=== PATIENT | female | born 1970 | race Two or more races ===

== ENCOUNTER → 2024-12-24 | Outpatient (CLI) | payer OTHER, SELFPAY ==
--- NOTE | 2024-12-24 14:01 | XR_ITS ---
Examination: Knee, right , 3 views Technique: Knee AP, lateral, oblique 3 views Date and time of exam: December 24, 2024 1412 hours INDICATIONS: Right knee pain beginning one week ago FINDINGS: Mild osteopenia Mild narrowing medial joint space No fracture or dislocation IMPRESSION: Mild narrowing medial joint space
== END | disposition home or self-care (01) ==
LOC: CDIM 13:42
PROVIDERS: PCP Family Medicine; Referring Provider Physician Assistant; Visit Provider Physician Assistant
DX: M25.861 Other specified joint disorders, right knee (principal)
CPT/HCPCS: 73562

== ENCOUNTER → 2025-05-26 | Outpatient (CLI) | payer OTHER, SELFPAY ==
[2025-05-26 08:05] LABS: Collection Type, Urine Clean Catch
[2025-05-26 08:27] LABS: Basophils # (Auto) 0.0 Thou/mm3 (0.0-0.2); Basophils % (Auto) 0 % (0-2.5); Eosinophils # (Auto) 0.0 Thou/mm3 (0.0-0.5); Eosinophils % (Auto) 0 % (0-10); Hematocrit 37.8 % (36.0-46.0); Hemoglobin 13.1 g/dL (12.0-16.0); Immature Granulocytes Auto 0.04 Thou/mm3 (0.00-0.00); Lymphocytes # (Auto) 1.2 Thou/mm3 (1.0-4.8); Lymphocytes % (Auto) 13 % (10-50); Mean Corpuscular HGB Conc 34.7 g/dl (31.0-37.0); Mean Corpuscular Hemoglobin 29.8 pg (25.0-35.0); Mean Corpuscular Volume 86 fL (80-100); Monocytes # (Auto) 0.3 Thou/mm3 (0.0-0.8); Monocytes % (Auto) 4 % (0-12); Neutrophils # (Auto) 7.6 Thou/mm3 (1.8-7.7); Neutrophils % (Auto) 83 % (37-80); Nucleated Red Blood Cell # 0.00 Thou/mm3 (0.00-0.00); Nucleated Red Blood Cell % 0 /100 WBC (0); Platelet Count 332 Thou/mm3 (140-440); RDW Standard Deviation 41.9 fL (36.4-46.3); Red Blood Count 4.39 Miln/mm3 (4.00-5.20); White Blood Count 9.2 Thou/mm3 (3.6-11.0)
[2025-05-26 08:33] LABS: Glucose Estimated Average 120 mg/dL (80-131); Hemoglobin A1C 5.8 % Hgb (4.8-6.0)
[2025-05-26 08:41] LABS: Bilirubin,Urine Negative (Negative); Blood,Urine Negative (Negative); Clarity,Urine Clear (Clear/Hazy); Color,Urine Lt-Yellow (Lt Yel-Yel); Culture Indicated,Urine Not Indicated; Glucose, Urine Negative (Negative); Ketones,Urine Negative (Negative); Leukocyte Esterase,Urine Negative (Negative); Nitrite,Urine Negative (Negative); PH,Urine 6.5 (5.0-7.0); Protein,Urine Negative (Neg - Trace); RBC,Urine 4 /hpf (0-3); Specific Gravity,Urine 1.019 (1.001-1.035); Squamous Epithelial Cell,Urine 3 /hpf (0-5); Urobilinogen,Urine Negative mg/dL (0.0-1.0); WBC,Urine 1 /hpf (0-5)
[2025-05-26 08:48] LABS: Vitamin D 25 Hydroxy Total 18.4 ng/mL (7.3-40.2)
[2025-05-26 09:03] LABS: Alanine Aminotransferase 20 U/L (10-49); Albumin, Serum 4.6 gm/dL (3.5-5.0); Albumin/Globulin Ratio 1.5 (1.2-2.2); Alkaline Phosphatase 109 U/L (46-116); Anion Gap 11 (7-16); Aspartate Amino Transferase 21 U/L (0-34); BUN/Creatinine Ratio 18 Ratio (12-20); Bilirubin,Total 0.4 mg/dL (0.3-1.2); Blood Urea Nitrogen 14 mg/dL (9-23); Calcium 9.9 mg/dL (8.3-10.6); Calcium (Corrected) 9.9 mg/dL (8.5-10.1); Carbon Dioxide 24.6 mMol/L (20.0-31.0); Cardiac Risk Estimate 4.5 RATIO (3.7-5.6); Chloride 106 mMol/L (98-107); Cholesterol 237 mg/dL (132-200); Creatinine (Component) 0.8 mg/dL (0.6-1.3); Free T4 (Free Thyroxine) 1.13 ng/dL (0.89-1.76); Globulin 3.1 gm/dL (2.3-3.5); Glucose 139 mg/dL (74-106); HDL Cholesterol 53 mg/dL (40-60); LDL Cholesterol,Calculated 165 mg/dL (0-130); Osmolality,Calculated 285 (275-295); Potassium 4.3 mMol/L (3.4-5.1); Sodium 142 mMol/L (136-145); Thyroid Stimulating Hormone 0.40 uIU/mL (0.55-4.78); Total Protein 7.7 gm/dL (5.7-8.2); Triglycerides 94 mg/dL (30-150); eGFR > 60 See Note
== END | disposition home or self-care (01) ==
PROVIDERS: PCP Family Medicine; Referring Provider Registered Nurse; Visit Provider Registered Nurse
DX: E66.9 Obesity, unspecified (principal); R79.89 Other specified abnormal findings of blood chemistry
CPT/HCPCS: 36415; 80053; 80061; 81001; 82306; 83036; 84439; 84443; 85025